=== PATIENT | female | born 1995 | race Caucasian/White ===

== ENCOUNTER 2024-11-07 15:08 | Emergency (ER) | payer OTHER ==
[~2024-11-07] VITALS: Ht 167.6 cm; Wt 68.0 kg
[~2024-11-07 15:08] MED LIST: WELLBUTRIN SR100 MG PO
[2024-11-07 16:06] LABS: BLOOD/HGB, URINE NEGATIVE (Negative); KETONE, URINE SMALL (Negative); LEUK ESTERASE, URINE NEGATIVE (negative); NITRITE, URINE NEGATIVE (negative)
[2024-11-07 19:09] LABS: BASOPHILS 0.4 % (0.1-1.2); EOSINOPHILS 1.7 % (0.7-5.8); LYMPHOCYTES 19.7 % (19.3-51.7); MCH 29.5 PG (25.6-32.2); MCHC 34.1 g/dL (32.2-35.5); MCV 86.3 fL (79.4-94.8); MONOCYTES 6.8 % (4.7-12.5); NEUTROPHILS 71.0 % (34.0-71.1); RBC 4.82 M/uL (3.93-5.22)
[2024-11-07 19:24] LABS: ALT (SGPT) 12.0 U/L (14-59); AST (SGOT) 12.0 U/L (15-37); GLOMERULAR FILTRATION RATE,EST 129.0 mL/min (>60); PROTEIN, TOTAL 7.9 g/dL (6.4-8.2); UREA NITROGEN 6.0 mg/dL (7-18)
[2024-11-07] MEDS ORDERED: LACTATED RINGER'S 1,000 ML IV ONE (20:15)
[2024-11-07 20:30] LABS: ABO A; RH POSITIVE
[2024-11-07 23:07] VITALS: BP 104/59
== END 2024-11-07 23:06 | disposition home or self-care (01) ==
LOC: ED 15:08
PROVIDERS: Emergency Medicine; Internal Medicine
DX: O99.891 Other specified diseases and conditions complicating pregnancy (principal); R10.11 Right upper quadrant pain; Z3A.08 8 weeks gestation of pregnancy; Z88.8 Allergy status to other drugs, medicaments and biological substances; Z79.899 Other long term (current) drug therapy
CPT/HCPCS: 36415; 51701; 76705; 76801; 76817; 80053; 81003; 83690; 84702; 84703; 85025; 86900; 86901; 96374; 99284-25; J2405; J7121